=== PATIENT | female | born 1990 | race African-American/Black ===

== ENCOUNTER 2016-12-08 08:32 | Emergency (ER) | payer OTHER ==
[~2016-12-08] VITALS: Ht 177.8 cm; Wt 108.0 kg
[~2016-12-08 08:32] MED LIST: FLEXERIL10 MG PO; NAPROSYN500 MG PO; TRAMADOL HCL50 MG PO
[2016-12-08] MEDS ORDERED: NAPROXEN500 MG PO (10:41)
[2016-12-08 10:58] VITALS: BP 123/83
== END 2016-12-08 10:59 | disposition home or self-care (01) ==
LOC: EME 08:32
DX: M94.0 Chondrocostal junction syndrome [Tietze] (principal)
CPT/HCPCS: 71020; 99281; 99283